=== PATIENT | female | born 1975 | race Caucasian/White ===

== ENCOUNTER 2018-10-20 12:00 | Inpatient (IN) | payer OTHER ==
[~2018-10-20] VITALS: Ht 170.2 cm; Wt 75.0 kg
[~2018-10-20 12:00] MED LIST: GLIM4TAB; LEVO150T87 PO; SIMV20TA2 PO
[2019-01-01 17:38] VITALS: Ht 170.2 cm; Wt 75.0 kg
[2019-01-03] VITALS (30 sets, daily range): BP systolic 115–157; BP diastolic 53–94; PULSE 72–97; RESP 10–27
[2019-01-03] MEDS ORDERED: LACTATED RINGER'S 1,000 ML IV* ONE (06:00)
[2019-01-03] MEDS ORDERED: THROMBIN (BOVINE) 5,000 UNIT VIAL TP ONE (06:55)
[2019-01-03] MEDS ORDERED: CEFAZOLIN 1 GM INJ ONE (06:55)
[2019-01-03] MEDS ORDERED: GELATIN SIZE 100 SPONGE ONE (06:55)
[2019-01-03] MEDS ORDERED: DESFLURANE 15 MIN ONE (07:00)
[2019-01-03] MEDS ORDERED: METF100010 PO (07:23)
[2019-01-03] MEDS ORDERED: ATOR40TA68 PO (07:23)
[2019-01-03] MEDS ORDERED: LEVO125T71 PO (07:23)
--- NOTE | 2019-01-03 07:23 | PREAC ---
Date/Time of Note Date/Time of Note DATE: 01/03/19 TIME: 07:22 Anesthesia Eval and Record Evaluation Time Pre-Procedure Interview DATE: 01/03/19 TIME: 07:22 Age 43 Sex female NPO: 8 hrs Preoperative diagnosis lumbar ddd Planned procedure L4-5 Lumbar interbody Fusion Past Medical History Past Medical History: Includes Cardio: HTN, Dyslipidemia Endo: Diabetes, Hypothyroid Recreational drugs: Marijuana Surgery & Anesthesia Issues No known issue Meds Anticoagulation: No Beta Traci within 24 hr: No Reason Beta Traci not given: Pt. not on B-Traci Reported Medications Simvastatin (Simvastatin) 20 Mg Tablet, 20 MG PO HS, TAB 06/30/14 Levothyroxine Sodium* (Synthroid*) 150 Mcg Tablet, 150 MCG PO AC BREAKFAST, TAB 06/30/14 Glimepiride* (Glimepiride*) 4 Mg Tablet 03/04/11 Current Medications Lactated Ringer's 1,000 ml @ 25 mls/hr Q24H ONCE IV* ; Start 01/03/19 at 06:00; Stop 01/04/19 at 05:59 Meds reviewed: Yes Allergies Coded Allergies: Erythromycin Base (Verified Allergy, Mild, 06/30/14) Penicillins (Verified Allergy, Mild, 06/30/14) codeine (Verified Allergy, Mild, 06/30/14) Uncoded Allergies: PLASTIC TAPES (Allergy, Mild, 03/05/11) Allergies Reviewed: Yes Labs/Studies Labs Reviewed: Reviewed by anesthesiologist Blood Bank Test 01/03/19 06:07 Blood Type O POSITIVE test: Negative Pre-procedure Exam Airway: Adequate mouth opening, Adequate thyromental dist Mallampati: Mallampati II Teeth: Normal Lung: Normal Heart: Normal ASA Physical Status ASA physical status: 3 Emergency: None Planned Anesthetic General/MAC: ETT Pre-operative Attestations Prior to commencing anesthesia and surgery, the patient was re-evaluated, there was verification of: *The patient's identity *The results of appropriate recent lab work and preoperative vital signs *The above evaluation not changing prior to induction *Anesthetic plan, risk benefits, alternative and complications discussed with patient/family; questions answered; patient/family understands, accepts and wishes to proceed. DENISE HERNANDEZ Jan 03, 2019 07:23
[2019-01-03] MEDS ORDERED: CHOL100062 PO (07:24)
--- NOTE | 2019-01-03 07:24 | HPN ---
Date/Time of Note Date/Time of Note DATE: 01/03/19 TIME: 07:24 Interval H&P Admission Note Pt. seen H&P reviewed: No system changes KIMBERLY ZAMAN MD Jan 03, 2019 07:24
[2019-01-03] MEDS ORDERED: ONDANSETRON 4 MG INJ IV PRN ×2 (07:30→15:30)
[2019-01-03] MEDS ORDERED: ALBUTEROL 0.083% (NEB) 2.5 MG/3 ML AMP HHN PRN (07:30)
[2019-01-03] MEDS ORDERED: METOCLOPRAMIDE 10 MG INJ IV PRN (07:30)
[2019-01-03] MEDS ORDERED: FENTAnyl 50 MCG/ML VIAL IV PRN ×6 (07:30→15:30)
[2019-01-03] MEDS ORDERED: MEPERIDINE 25 MG INJ IV PRN ×2 (07:30→15:30)
[2019-01-03] MEDS ORDERED: DIPHENHYDRAMINE 50 MG INJ IV PRN ×2 (07:30→15:30)
[2019-01-03] MEDS ORDERED: HYDROmorphONE 1 MG/5 ML IV SYRINGE IV PRN ×3 (07:30)
[2019-01-03] MEDS ORDERED: FENTAnyl 50 MCG/ML VIAL ONE ×6 (07:35→13:28)
--- NOTE | 2019-01-03 07:50 | PREOPHP ---
DATE OF ADMISSION: 01/03/2019 HISTORY OF PRESENT ILLNESS: The patient is a 43-year-old female with chronic low back pain and radia ting leg pain. The patient denies any bowel or bladder incontinence. The patient had an MRI and CT scan, which showed L4-L5 spondylolisthesis and stenosis. The patient states her leg pain is equal to her low back pain. PAST MEDICAL HISTORY: The patient's past medical history significant for diabetes. The patient has hypothyroidism, hyperlipidemia. REVIEW OF SYSTEMS: CONSTITUTIONAL: The patient denies any fevers or chills. HEMATOLOGIC: Denies any history of easy bruising or bleeding. PAST SURGICAL HISTORY: Denies. FAMILY HISTORY: Maternal grandmother has hypertension, heart disease. Maternal grandfather has hype rtension and heart disease. SOCIAL HISTORY: The patient is nonsmoker, but does smoke cannabis. ALLERGIES: 1. CODEINE. 2. PENICILLIN. 3. AZITHROMYCIN. PHYSICAL EXAMINATION: VITAL SIGNS: The patient's temperature 97.7, pulse 80, respirations 18, blood pressure 119/73. GENERAL: The patient is a mildly obese, middle-aged female in no acute distress. HEAD AND NECK: Normocephalic, atraumatic. Her neck is supple, nontender. CARDIAC: Regular rate and rhythm. LUNGS: Clear to auscultation. ABDOMEN: Nontender, nondistended, soft. EXTREMITIES: No clubbing, cyanosis, or edema. NEUROLOGIC: The patient is awake, alert, and oriented x3, fluent speech, follows commands readily ap propriately. She has normal attention and concentration and intact remote, and immediate and recent memory. Cranial nerves II through XII are intact. Motor exam is 5/5 bilaterally in upper and lower extremities. Deep tendon reflexes were 1+ with no clonus, Babinski, or Diana sign. PREOPERATIVE LABS: Reviewed. ASSESSMENT AND PLAN: A 43-year-old female with low back pain, severe L4-L5 degenerative disk disease , spondylolisthesis. I discussed the patient's signs, symptoms, physical examination, radiographic f indings with her again. I discussed the nature of the procedure, the risks, benefits and alternative s. The patient elected to proceed with surgery. The patient is to undergo an L4-L5 posterior spinal fusion with possible transforaminal lumbar interbody fusion. The patient has been cleared by her pr imary medical doctor and cna gna. Dictated By: KIMBERLY ZAMAN MD, LG/FERNANDO Conf#: [id number] DID#: [id number] CC: KIMBERLY ZAMAN MD;*EndCC*
[2019-01-03] MEDS ORDERED: POLYMYXIN/BACITRACIN 1L IRRIG ONE (08:20)
[2019-01-03] MEDS ORDERED: VANCOMYCIN 1 GM INJ ONE (08:20)
[2019-01-03] MEDS ORDERED: MIDAZOLAM 1 MG/ML 2 ML INJ ONE (08:29)
[2019-01-03] MEDS ORDERED: LIDOCAINE 1%/EPI (1:100,000) (MDV) 20 ML ONE (08:42)
[2019-01-03] MEDS ORDERED: SUCCINYLCHOLINE CHLORIDE 100 MG/5 ML SYG IV ONE (09:06)
[2019-01-03] MEDS ORDERED: LIDOCAINE 100 MG SYRINGE ONE (09:06)
[2019-01-03] MEDS ORDERED: PROPOFOL 20 ML ONE (09:06)
[2019-01-03] MEDS ORDERED: ROCURONIUM 50 MG INJ ONE (09:06)
[2019-01-03] MEDS ORDERED: GELATIN SIZE 100 SPONGE TOP ONE ×2 (11:56)
[2019-01-03] MEDS ORDERED: LABETALOL HCL 20MG INJ ONE ×2 (12:11→14:20)
[2019-01-03] MEDS ORDERED: SUGAMMADEX SODIUM 200 MG/2 ML VIAL IV ONE (14:11)
[2019-01-03] MEDS ORDERED: HYDROCODONE/APAP (5/325) TAB PO PRN ×2 (14:30)
[2019-01-03] MEDS ORDERED: ACETAMINOPHEN 325 MG TAB PO PRN (14:30)
[2019-01-03] MEDS ORDERED: NACL 0.9% 3 ML SYG IV SCH (14:30)
[2019-01-03] MEDS ORDERED: ZOLPIDEM 5 MG TAB PO PRN (14:30)
[2019-01-03] MEDS ORDERED: NALOXONE (0.4 MG/ML) INJ IV PRN (14:30)
[2019-01-03] MEDS ORDERED: DIPHENHYDRAMINE 50 MG CAP PO PRN (14:30)
[2019-01-03] MEDS ORDERED: ONDANSETRON 4 MG INJ ONE (14:37)
--- NOTE | 2019-01-03 14:44 | OPR ---
Date/Time of Note Date/Time of Note DATE: 01/03/19 TIME: 14:36 Operative Report Preoperative Diagnosis 1. chronic low back pain 2. lumbar radiculopathy 3.spondylolisthesis 4. lumbar degenerative disc disease. Postoperative Diagnosis 1. chronic low back pain 2. lumbar radiculopathy 3.spondylolisthesis 4. lumbar degenerative disc disease. Operation/Procedure Performed 1. lumbar laminectomy, medial facetectomy and foraminotomy L4-5. 2. L4-5 interbody and postero-lateral arthrodesis. 3. Placement of mechanical intervertebral body device. 4. Placement of posterior pedicle screw instrumentation. 5. Use of microscope for intraoperative microdissection. 6. Use of computerized frameless stereotactic navigation. Surgeon see signature line Combination Man EMILIA Wills Anesthesia Type: general Anesthesiologist: DENISE HERNANDEZ Estimated Blood Loss: 100 - 150 ml's Transfusion none Specimen none Grafts/Implants Pedicle screws, Choice spine. Spinewave expandable interbody cage Tubes/Drains subfascial CINDY Complications none Pt Condition Post Procedure: stable Disposition: PACU Procedure Description see dictation KIMBERLY ZAMAN MD Jan 03, 2019 14:44
[2019-01-03] MEDS: ONDANSETRON 4 MG INJ IV PRN ×2 (15:22→20:40)
[2019-01-03] MEDS: morphine 1 MG/ML 30 ML (PCA) IV SCH (16:09)
[2019-01-03] MEDS: SOD CHLORIDE 0.45% 1,000 ML IV SCH (16:47)
--- NOTE | 2019-01-03 19:36 | OPR ---
DATE OF OPERATION: 01/03/2019 PREOPERATIVE DIAGNOSES: 1. Chronic low back pain. 2. Lumbar radiculopathy. 3. Lumbar spondylolisthesis at L4 to L5. 4. Lumbar degenerative disk disease. POSTOPERATIVE DIAGNOSES: 1. Chronic low back pain. 2. Lumbar radiculopathy. 3. Lumbar spondylolisthesis at L4 to L5. 4. Lumbar degenerative disk disease. SURGEON: Kimberly Torres MD OPERATIONS CHIEF: Lacey Toro PA-C ANESTHESIOLOGIST: Harry Abel MD ANESTHESIA: General endotracheal. ESTIMATED BLOOD LOSS: 150 mL. SPECIMENS COLLECTED: None. GRAFTS: Included pedicle screws by ChoiceSpine expandable interbody cage. DRAINS PLACED: One subfascial CINDY. COMPLICATIONS: None. SPECIMENS COLLECTED: None. DISPOSITION: PACU. INDICATIONS: The patient is a 43-year-old female with chronic low back pain and lumbar radiculopathy. The patient had evidence of spondylolisthesis at L4 to L5 and severe degenerative disk disease. The risks, benefits and alternatives of surgical intervention were discussed with the patient who elected for surgery. PROCEDURE IN DETAILS: The patient was brought to the OR. She was sedated, intubated and anesthesia was successfully induced. Perioperative antibiotics were given. Sequential compression devices were placed in lower extremity. A Reyes catheter was placed. The patient was placed in a prone position on a Tu table. All pressure points were checked for appropriate padding. Electrophysiologic monitoring with EMGs and SSEPs were performed and baseline was established. Fluoroscopy was used to localize the initial incision. The patient was sterilely prepped and draped. After surgical time-out, the procedure commenced. A 10-blade knife was used to make an incision over the inferior L3, L4 and L5 spinous processes. Bovie electrocautery was used to dissect subperiosteally bilaterally on the spinous processes, lamina and facet joints to the transverse processes of L4 and L5. Self-retaining retractors were placed. At this point, the BrainLAB frame was placed in spinous process of L4 and the BrainLAB was registered. I proceeded to place the pedicle screws into the pedicles of L4 and L5 bilaterally using routine the following technique: The BrainLAB probe was used to localize the initial incision. A high speed drill was used to create a military pilot hole. Then, computer navigated drill was used to drill 30 mm into the pedicle. This hole was probed with a pedicle probe and then the BrainLAB probe placed in the hole to confirm the appropriate trajectory and location. Next, a 5.5 tap was used to cannulate the pedicle. Again, the hole was palpated and there was no evidence of breach and the BrainLAB probe was placed into the hole again to allow for trajectory and depth. Next 6.0 x 45 screw was screwed into the pedicle. All screws had excellent purchase. This was performed bilaterally at L4 and L5. The screws were tested, and there was no stimulation at 20 milliamps. X-rays were performed and there appeared to be good alignment of the screws. Next, the microscope was brought into the surgical field. Under microdissection,a laminectomy, bilateral medial facetectomy and foraminotomy was performed in inferior aspect of L4 and superior aspect of L5. This was performed with high speed drill and Kerrison rongeurs. This was distinctly performed to relieve lateral recess and foraminal stenosis from facet arthropathy and ligamentum flavum hypertrophy causing radicular symptoms. The inferior facet of L4 was then removed and the excess ligament was removed and exposure of the lateral disk space. The thecal sac was gently retracted medially. An 11-blade knife was used to incise the annulus. A diskectomy was performed with pituitary rongeurs and curettes. The disk space was severely collapsed and hence distraction was used in the pedicle screws with a ondina that was placed and clamped. This opened the disk space to allow for further diskectomy. Paddle stefano were placed to remove some disk space and used to remove some of the cartilaginous endplate. At this point, the bone was collected from the laminectomy as well as allograft was collected. An expandable cage 8 mm was tamponaded under fluoroscopic supervision into the disk space. It was then expanded to its full height from 8 to 10 mm. The bone was then tunneled into the graft into the disk space. Once the graft had been deployed, remaining graft was placed posterolaterally on the bone. Two rods were placed into the screw heads bilaterally and caps were placed. Final tightening was performed. Final fluoroscopic images were performed. The wound was copiously irrigated with bacitracin irrigation. A subfascial drain was placed in incision and tunneled throughout the skin. The incision was then closed with 1 interrupted Vicryl sutures in the fascia, 2-0 interrupted Vicryl sutures and subcutaneous layer in a running 4-0 Monocryl suture. Dermabond was placed. Incision was allowed to dry and sterile dressing was applied. The patient was taken off the table to recovery. Electrophysiologic monitoring remained stable during the case. Sponge, needle and cottonoid counts were reported correct at the end of the case. Dictated By: KIMBERLY TORRES MD, LG/FERNANDO Conf#: [id number] DID#: [id number] MTDD
[2019-01-03] MEDS: VANCOMYCIN 1 GM (PMX) 250 ML IVPB SCH (20:41)
[2019-01-03] MEDS: DIAZEPAM 5 MG TAB PO PRN (20:45)
[2019-01-03] MEDS: CEPASTAT LOZENGE MT PRN (20:46)
[2019-01-03] MEDS ORDERED: GLUCOSE GEL 15 GRAM TUBE BUCCAL PRN (22:00)
[2019-01-03] MEDS ORDERED: GLUCAGON 1 MG INJ IM PRN (22:00)
[2019-01-03] MEDS ORDERED: DEXTROSE 50% 50 ML SYRINGE IV PRN ×2 (22:00)
[2019-01-03] MEDS ORDERED: GLUCOSE GEL 15 GRAM TUBE PO PRN ×2 (22:00)
[2019-01-04 00:20] VITALS: BP 113/58; PULSE 94; RESP 18
[2019-01-04] MEDS: SOD CHLORIDE 0.45% 1,000 ML IV SCH ×4 (00:24→21:00)
[2019-01-04] MEDS: DIAZEPAM 5 MG TAB PO PRN ×4 (00:42→19:22)
[2019-01-04] MEDS: morphine 1 MG/ML 30 ML (PCA) IV SCH (01:09)
[2019-01-04] MEDS: ONDANSETRON 4 MG INJ IV PRN ×4 (01:56→22:48)
--- NOTE | 2019-01-04 07:30 | PAC ---
Date/Time of Note Date/Time of Note DATE: 01/04/19 TIME: 07:30 Post-Anesthesia Notes Post-Anesthesia Note Last documented vital signs Vital Signs Date Temp Pulse Resp B/P (MAP) Pulse Ox O2 O2 Flow FiO2 Time Delivery Rate 01/04/19 18 05:00 01/04/19 98.4 94 113/58 98 00:20 (76) 01/03/19 Room Air 17:00 Activity: WNL Respiratory function: WNL Cardiovascular function: WNL Mental status: Baseline Pain reasonably controlled: Yes Hydration appropriate: Yes Nausea/Vomiting absent: Yes DENISE HERNANDEZ Jan 04, 2019 07:30
[2019-01-04 07:56] VITALS: BP 116/58; PULSE 74; RESP 18
[2019-01-04] MEDS: VANCOMYCIN 1 GM (PMX) 250 ML IVPB SCH (08:24)
[2019-01-04] MEDS: DOCUSATE SODIUM 100 MG CAP PO SCH ×2 (08:25→21:07)
[2019-01-04] MEDS: INSULIN ASPART [NOVOLOG] 3 ML PEN SC SCH ×4 (08:36→21:00)
[2019-01-04] MEDS ORDERED: ACETAMINOPHEN 1000MG/100ML IV 100 ML IVPB PRN (12:30)
--- NOTE | 2019-01-04 12:57 | PN ---
Date/Time of Note Date/Time of Note DATE: 01/04/19 TIME: 12:50 Assessment/Plan Lines/Catheters IV Catheter Type (from Nrs): Peripheral IV Reyes in Place (from Nrs): Yes (INSERTED IN OR) Assessment/Plan Chief Complaint/Hosp Course POD # 1 s/p L3-4 laminectomy and fusion. The patient is neurologically stable. I removed her subfascial drain. Physical therapy. Toradol and IV Tylenol to minimize narcotics due to nausea, D/C UND[employer] INTERNS[employer]. SCD for DVT prophylaxis, will start low dose heparin. Bowel program. Ambulate. Subjective 24 Hr Interval Summary Patient is doing well but is anxious. She was complaining of a wet sensation under her incision but the incision is completely dry. She denies any LE radiating pain, numbness, tingling or focal weakness. She reports incisional low back pain. She reports some left hip swelling/tenderness. She reports some nausea. She denies fevers. She has ambulated and been seen by physical therapy. 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
[2019-01-04 15:06] VITALS: BP 123/58; PULSE 78; RESP 18
--- NOTE | 2019-01-04 15:57 | QN ---
Documentation Comment SEEN AND EXAMINED LUCAS GARCIA MD Jan 04, 2019 15:57
[2019-01-04] MEDS ORDERED: POTASSIUM CHLORIDE (SR) 20 MEQ TAB PO STA (16:14)
[2019-01-04] MEDS: KETOROLAC 30 MG INJ IV PRN (16:24)
[2019-01-04] MEDS: CEPASTAT LOZENGE MT PRN ×2 (17:15→21:33)
--- NOTE | 2019-01-04 17:49 | CONS ---
DATE OF ADMISSION: 01/03/2019 DATE OF CONSULTATION: 01/03/2019 REASON FOR ADMISSION: Status post L3 to L4 laminectomy and fusion. HISTORY OF PRESENTING ILLNESS: This is a 43-year-old female with a past medical history of diabetes, hyperlipidemia, hypothyroidism, who was having chronic back pain for many years. The patient was fo und to have lumbar radiculopathy, spondylolisthesis and lumbar degenerative disk disease. The patien t had a lumbar laminectomy, medial facetectomy and foraminotomy at L4 to L5 done by Dr. Zaman on . Currently, the patient said that she is in pain; however is off the CIVIL MANAGER pump as she was fe eling nauseous. She will be having physical therapy today. Vital signs currently blood pressure 123 /58, afebrile, heart rate 78, saturating 98% on room air. Labs showed potassium 3.4, BUN of 4, creat inine 0.34, glucose 221, calcium 8.7. PAST MEDICAL HISTORY: 1. Diabetes. 2. Hyperlipidemia. 3. Hypothyroidism. MEDICATIONS TAKING AT HOME: 1. Atorvastatin 40. 2. Levothyroxine 125. 3. Metformin 1000 b.i.d. 4. Cholecalciferol. ALLERGIES: 1. PENICILLIN. 2. CODEINE. 3. ERYTHROMYCIN BASE. PAST SURGICAL HISTORY: The patient had some uterine surgery. SOCIAL HISTORY: No history of smoking, alcohol or any drug use. Lives with her . REVIEW OF SYSTEMS: The patient complained of severe back pain. Denied any abdominal pain, nausea, v omiting, diarrhea, chest pain, shortness of breath, hematemesis, any melena or any bright red blood p er rectum. PHYSICAL EXAMINATION: VITAL SIGNS: Afebrile, heart rate 74, respirations 18, blood pressure 116/58, saturating 92% on room air. GENERAL: The patient is awake, alert, oriented, appears to be in mild distress secondary to pain. HEENT: Pupils are equal, round, reactive to light. HEART: Regular rate and rhythm. LUNGS: Clear to auscultate. ABDOMEN: Soft, nontender, nondistended. SKIN: Surgical site wet sensation under the incision. The incision is dry. LABORATORY DATA: Potassium of 3.4, BUN of 4, creatinine 0.38, glucose 265. ASSESSMENT AND PLAN: This is a 43-year-old female who presented with: 1. L3 to L4 laminectomy with postop pain. 2. Postop pain. 3. Diabetes. 4. Mild hypokalemia. 5. Hypercholesterolemia. 6. Hypothyroidism. PLAN: At this period of time, the patient is admitted to med/surg. The patient will be on carbohydr ate controlled diet. The patient will be resumed on home medicines. Currently, the patient is on To radol and Tylenol for pain. The patient is being seen by physical therapy. Rest of the treatment wi ll depend on the patient's hospitalization course. Dictated By: LUCAS JEFFERSON/FERNANDO Conf#: [id number] DID#: [id number] CC: KIMBERLY ZAMAN MD; PERLA WEBER MD;*[facility]*
[2019-01-04 20:30] VITALS: BP 130/67; PULSE 84; RESP 19
[2019-01-04 20:55] VITALS: BP 130/67; PULSE 84; RESP 19
[2019-01-04] MEDS ORDERED: ATORVASTATIN 40 MG TAB PO SCH (21:00)
[2019-01-04] MEDS: morphine 2 MG INJ IV PRN (21:07)
[2019-01-05] MEDS: DIAZEPAM 5 MG TAB PO PRN ×2 (00:14→05:43)
[2019-01-05] MEDS: KETOROLAC 30 MG INJ IV PRN ×2 (00:14→12:39)
[2019-01-05] MEDS: morphine 2 MG INJ IV PRN ×3 (05:01→16:16)
[2019-01-05] MEDS: LEVOTHYROXINE 125 MCG TAB PO SCH ×2 (06:11→21:23)
--- NOTE | 2019-01-05 06:41 | PN ---
Date/Time of Note Date/Time of Note DATE: 01/05/19 TIME: 06:37 Assessment/Plan Lines/Catheters IV Catheter Type (from Nrsg): Peripheral IV Reyes in Place (from Nrsg): Yes (INSERTED IN OR) Assessment/Plan Chief Complaint/Hosp Course POD # 2 s/p L3-4 laminectomy and fusion. The patient is neurologically stable. Cont. to mobilize. Physical therapy. Pain control. SCD for DVT prophylaxis, will start low dose heparin. Cont. Bowel program. Ambulate. Subjective 24 Hr Interval Summary Patient progressing slowly. Began her period today. Still mostly complaining of nausea, likely pain related not passing gas but no abdominal tenderness or distention. Denies weakness. Reports some left anterior thigh numbness but denies radicular pain. Reports incisional LBP. 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 GRAVELYKIMBERLY MD Jan 05, 2019 06:41
[2019-01-05 07:16] VITALS: BP 128/60; PULSE 80; RESP 18
[2019-01-05] MEDS: CEPASTAT LOZENGE MT PRN ×3 (07:24→19:57)
[2019-01-05] MEDS: INSULIN ASPART [NOVOLOG] 3 ML PEN SC SCH ×4 (08:41→21:00)
[2019-01-05] MEDS: DOCUSATE SODIUM 100 MG CAP PO SCH ×2 (09:05→20:53)
[2019-01-05] MEDS: ONDANSETRON 4 MG INJ IV PRN ×3 (10:24→21:23)
--- NOTE | 2019-01-05 12:44 | CONS ---
Assessment/Plan Assessment/Plan Hospital Course (Demo Recall) 1. L3 to L4 laminectomy. 2. Postop pain. 3. Diabetes mellitus type II. 4. Mild hypokalemia. 5. Hypercholesterolemia. 6. Hypothyroidism. 7. Anxiety Assessment/Plan (Daily) - med/surg. -antianx. meds - carbohydrate controlled diet. on Toradol and Tylenol for pain. - physical therapy. -bowel regime Consultation Date/Type/Reason Admit Date/Time Jan 03, 2019 at 05:29 Initial Consult Date Type of Consult primary Date/Time of Note DATE: 01/05/19 TIME: 12:44 24 HR Interval Summary Free Text/Dictation constipation Exam/Review of Systems Exam Vitals Vital Signs Date Temp Pulse Resp B/P (MAP) Pulse Ox O2 O2 Flow FiO2 Time Delivery Rate 01/05/19 98.2 80 18 128/60 94 Room Air 07:16 (82) Intake and Output 01/04/19 01/04/19 01/05/19 1515:00 23:00 07:00 IntakeIntake Total 1440 ml 1050 ml 520 ml OutputOutput Total 760 ml 1100 ml 750 ml BalanceBalance 680 ml -50 ml -230 ml Constitutional: alert, oriented Psych: anxiety Eyes: nl conjunctiva Neck: supple Respiratory: clear to auscultation Cardiovascular: regular rate and rhythm Gastrointestinal: soft Musculoskeletal: other (surg scar) Results Result Diagram: 01/04/19 0427 01/04/19 0427 Results 24hrs Laboratory Tests Test 01/04/19 13:28 01/04/19 17:59 01/04/19 21:11 01/05/19 08:28 Bedside Glucose 184 184 156 207 Medications Medication Current Medications Sodium Chloride 1,000 ml @ 50 mls/hr Q20H IV Last administered on 01/04/19at 21:00; Admin Dose 50 MLS/HR; Start 01/03/19 at 14:24 Zolpidem Tartrate (Ambien) 5 mg HS PRN PO .INSOMNIA Last administered on 01/03/19at 22:06; Admin Dose 5 MG; Start 01/03/19 at 14:30 Ondansetron HCl (Zofran Inj) 4 mg Q6H PRN IV NAUSEA/VOMITING Last administered on 01/05/19at 10:24; Admin Dose 4 MG; Start 01/03/19 at 14:30 Docusate Sodium (Colace) 100 mg BID PO Last administered on 01/05/19at 09:05; Admin Dose 100 MG; Start 01/04/19 at 09:00 Acetaminophen (Tylenol Tab) 650 mg Q4H PRN PO TEMP GREATER THAN 101F OR ALCARAZ; Start 01/03/19 at 14:30 Diazepam (Valium) 5 mg Q4H PRN PO .MUSCLE SPASM Last administered on 01/05/19at 05:43; Admin Dose 5 MG; Start 01/03/19 at 14:30 Phenol (Cepastat Lozenge) 1 lozenge PRN PRN MT .SORE THROAT Last administered on 01/05/19 12:39; Admin Dose 1 LOZENGE; Start 01/03/19 at 14:30 Diphenhydramine HCl (Benadryl) 50 mg Q6H PRN PO .PRURITUS Last administered on 01/03/19at 20:46; Admin Dose 50 MG; Start 01/03/19 at 14:30 IV Flush (NS 3 ml) 3 ml PER PROTOCOL IV ; Start 01/03/19 at 14:30 Naloxone HCl (Narcan) 0.2 mg Q2M PRN IV RR 8 BREATHS/MIN OR LESS; Start 01/03/19 at 14:30 Insulin Aspart (Novolog Insulin Pen) NOVOLOG *MILD* ALGORITHM WITH MEALS BEDTIME SC Last administered on 01/05/19 08:41; Admin Dose 2 UNIT; Start 01/04/19 at 07:50 Miscellaneous Information 1 ea NOTE XX ; Start 01/03/19 at 22:00 Glucose (Glutose) 15 gm Q15M PRN PO DECREASED GLUCOSE; Start 01/03/19 at 22:00 Glucose (Glutose) 22.5 gm Q15M PRN PO DECREASED GLUCOSE; Start 01/03/19 at 22:00 Dextrose (D50w Syringe) 25 ml Q15M PRN IV DECREASED GLUCOSE; Start 01/03/19 at 22:00 Dextrose (D50w Syringe) 50 ml Q15M PRN IV DECREASED GLUCOSE; Start 01/03/19 at 22:00 Glucagon (Glucagen) 1 mg Q15M PRN IM DECREASED GLUCOSE; Start 01/03/19 at 22:00 Glucose (Glutose) 15 gm Q15M PRN BUCCAL DECREASED GLUCOSE; Start 01/03/19 at 22:00 Ketorolac Tromethamine (Toradol) 30 mg Q6H PRN IV PAIN LEVEL 1-3 Last administered on 01/05/19at 12:39; Admin Dose 30 MG; Start 01/04/19 at 12:30; Stop 01/07/19 at 12:29 Morphine Sulfate (morphine) 2 mg Q2H PRN IV SEVERE PAIN LEVEL 7-10 Last administered on 01/05/19at 10:18; Admin Dose 2 MG; Start 01/04/19 at 12:30 Atorvastatin Calcium (Lipitor) 40 mg QHS PO Last administered on 01/04/19at 21:07; Admin Dose 40 MG; Start 01/04/19 at 21:00 Levothyroxine Sodium (Synthroid) 125 mcg BEFORE BREAKFAST PO ; Start 01/05/19 at 07:00 ALYSON SUH Jan 05, 2019 12:44
[2019-01-05 14:00] VITALS: BP 118/70; PULSE 84; RESP 18
[2019-01-05] MEDS ORDERED: morphine (ER) 15 MG TAB PO PRN (14:00)
[2019-01-05] MEDS ORDERED: morphine (ER) 15 MG TAB PO SCH ×2 (15:30→17:00)
[2019-01-05] MEDS: LUBIPROSTONE 8 MCG CAPSULE PO SCH ×2 (16:01→20:53)
[2019-01-05] MEDS ORDERED: HYDROCODONE/APAP (10/325) TAB PO PRN (18:00)
[2019-01-05 19:10] VITALS: BP 133/63; PULSE 91; RESP 18
[2019-01-05] MEDS ORDERED: MAGNESIUM HYDROXIDE 30ML CUP PO PRN (20:30)
[2019-01-05] MEDS: SOD CHLORIDE 0.45% 1,000 ML IV SCH (20:52)
[2019-01-05] MEDS: GABAPENTIN 100 MG CAP PO SCH (20:53)
[2019-01-05] MEDS: DIAZEPAM 5 MG TAB PO SCH (20:53)
[2019-01-05] MEDS: morphine (ER) 15 MG TAB PO SCH (20:54)
[2019-01-05] MEDS ORDERED: ATORVASTATIN 20 MG TAB PO SCH (21:17)
[2019-01-05] MEDS: CALCIUM CARBONATE 500 MG CHEW TAB PO SCH (21:54)
[2019-01-06] MEDS: morphine 2 MG INJ IV PRN ×2 (01:58→05:42)
[2019-01-06 02:00] VITALS: BP 126/64; PULSE 89; RESP 18
[2019-01-06] MEDS: ONDANSETRON 4 MG INJ IV PRN (04:02)
[2019-01-06] MEDS: CEPASTAT LOZENGE MT PRN (04:06)
[2019-01-06 07:05] VITALS: BP 111/55; PULSE 67; RESP 17
[2019-01-06] MEDS ORDERED: POTASSIUM CHLORIDE (SR) 20 MEQ TAB PO STA ×2 (07:48→15:46)
--- NOTE | 2019-01-06 08:35 | PN ---
Date/Time of Note Date/Time of Note DATE: 01/06/19 TIME: 08:23 Assessment/Plan Lines/Catheters IV Catheter Type (from Nrsg): Peripheral IV Reyes in Place (from Nrsg): Yes (INSERTED IN OR) Assessment/Plan Chief Complaint/Hosp Course POD # 3 s/p L3-4 laminectomy and fusion. The patient is neurologically stable. Cont. to mobilize. Physical therapy. Pain control- on oral meds. SCD for DVT prophylaxis, will start low dose heparin. Cont. Bowel program. Should be able to go home today after seen by hospitalist. Has home health eval. Discussed D/C precautions and instructions with patient. f/u in 2 weeks. Subjective 24 Hr Interval Summary Patient still with multiple complaints but improving. Denies radicular pain, fever, chills or weakness. She is urinating, ambulating and passing gas. 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
[2019-01-06] MEDS: DOCUSATE SODIUM 100 MG CAP PO SCH (08:39)
[2019-01-06] MEDS: LUBIPROSTONE 8 MCG CAPSULE PO SCH (08:39)
[2019-01-06] MEDS: DIAZEPAM 5 MG TAB PO SCH ×2 (08:40→12:10)
[2019-01-06] MEDS: GABAPENTIN 100 MG CAP PO SCH (08:40)
[2019-01-06] MEDS: LEVOTHYROXINE 125 MCG TAB PO SCH (08:41)
[2019-01-06] MEDS: morphine (ER) 15 MG TAB PO SCH (08:41)
[2019-01-06] MEDS: CALCIUM CARBONATE 500 MG CHEW TAB PO SCH ×2 (08:41→12:10)
[2019-01-06] MEDS: INSULIN ASPART [NOVOLOG] 3 ML PEN SC SCH ×2 (08:43→12:31)
[2019-01-06] MEDS ORDERED: CALCIUM CARBONATE 500 MG CHEW TAB PO SCH (08:50)
[2019-01-06 14:11] VITALS: BP 127/57; PULSE 101; RESP 16
--- NOTE | 2019-01-06 15:26 | DS ---
Date/Time of Note Date/Time of Note DATE: 01/06/19 TIME: 15:26 Discharge Summary Admission/Discharge Info Admit Date/Time Jan 03, 2019 at 05:29 Discharge Date/Time Discharge Diagnosis s/p L3 to L4 laminectomy. Patient Condition: Stable Consults Dr Torres, neurosurgeon Procedures s/p L3 to L4 laminectomy 01/03/2019 Hospital Course The patient is a 43-year-old female with chronic low back pain, hypothyroidism, hyperlipidemia, anxiety, insomnia and radiating leg pain. The patient denies any bowel or bladder incontinence. The patient had an MRI and CT scan, which showed L4-L5 spondylolisthesis and stenosis. The patient states her leg pain is equal to her low back pain. PAST MEDICAL HISTORY: The patient's past medical history significant for diabetes. The patient has hypothyroidism, hyperlipidemia. Admission ds: 1.s/p L3 to L4 laminectomy. 2. Postop pain. 3. Diabetes mellitus type II. 4. Mild hypokalemia. 5. Hypercholesterolemia. 6. Hypothyroidism. 7. Anxiety During hospitalization patient was in med/surg. unit. Pt was on pain and antianxiety meds. However, pt reported back pain and left leg numbness. Dr Torres see pt daily and we followed his instructions. We kept pt on carbohydrate controlled diet and had hypoglycemic control. Pt was on Toradol, MS contin and Tylenol for pain. Pt was started on physical therapy. Constipation was resolved with bowel regime. Until discharge pt had moderate back pain. Home Meds Reported Medications Cholecalciferol* (Vitamin D3*) 1,000 Unit Tablet, 1000 UNIT PO DAILY, TAB 01/03/19 Levothyroxine Sodium* (Levoxyl*) 125 Mcg Tablet, 125 MCG PO BEFORE BREAKFAST, #30 TAB 01/03/19 Atorvastatin* (Atorvastatin*) 40 Mg Tablet, 40 MG PO QHS, #30 TAB 01/03/19 Metformin Hcl* (Metformin Hcl*) 1,000 Mg Tablet, 1000 MG PO WITH BREAKFAST DINNE, #60 TAB 01/03/19 Discontinued Reported Medications Simvastatin (Simvastatin) 20 Mg Tablet, 20 MG PO HS, TAB 06/30/14 Levothyroxine Sodium* (Synthroid*) 150 Mcg Tablet, 150 MCG PO AC BREAKFAST, TAB 06/30/14 Glimepiride* (Glimepiride*) 4 Mg Tablet 03/04/11 Follow-up Plan PCP 1 week, dr Torres 2 weeks Primary Care Provider Not On Staff Doctor Time spent on discharge: < 30 minutes Pending Labs Laboratory Tests Test 01/05/19 17:48 01/05/19 20:58 01/06/19 05:10 01/06/19 08:15 Bedside 172 288 171 Glucose mg/dL (70-220) mg/dL (70-220) mg/dL (70-220) White Blood 9.1 Count 10^3/ul (4.8-1 0.8) Red Blood 3.42 Count 10^6/ul (4.20- 5.40) Hemoglobin 10.7 g/dl (12.0-16. 0) Hematocrit 32.0 % (37.0-47.0) Mean 93.6 Corpuscular fl (82.0-101.0 Volume ) Mean 31.3 Corpuscular pg (29.0-33.0) Hemoglobin Mean 33.4 Corpuscular g/dl (32.0-37. Hemoglobin Conc 0) ent Red Cell 12.4 Distribution % (11.5-14.5) Width Platelet Count 170 10^3/UL (140-4 15) Mean Platelet 11.5 Volume fl (7.4-10.4) Immature 0.400 Granulocytes % % (0.001-0.429 ) Neutrophils % 66.1 % (39.0-77.0) Lymphocytes % 17.2 % (15.0-51.0) Monocytes % 12.0 % (0.0-11.0) Eosinophils % 4.0 % (0.0-7.0) Basophils % 0.3 % (0.0-2.0) Nucleated Red 0.0 Blood Cells % /100WBC (0.0-0 .0) Immature 0.040 Granulocytes # 10^3/ul (0.0-0 .031) Neutrophils # 6.0 10^3/ul (1.6-7 .5) Lymphocytes # 1.6 10^3/ul (0.8-2 .9) Monocytes # 1.1 10^3/ul (0.3-0 .9) Eosinophils # 0.4 10^3/ul (0.0-0 .5) Basophils # 0.0 10^3/ul (0.0-0 .1) Nucleated Red 0.0 Blood Cells # 10^3/ul (0.0-0 .0) Sodium Level 136 mmol/L (135-14 4) Potassium 3.3 Level mmol/L (3.5-5. 1) Chloride Level 105 mmol/L (97-110 ) Carbon Dioxide 26 Level mmol/L (21-31) Anion Gap 5 (5-13) Blood Urea 4 mg/dl (7-20) Nitrogen Creatinine 0.39 mg/dl (0.44-1. 00) Est Glomerular > 60 Filtrat mL/min (>60) Rate mL/min Glucose Level 185 mg/dl (70-220) Calcium Level 8.8 mg/dl (8.4-10. 2) Test 01/06/19 12:10 Bedside 186 Glucose mg/dL (70-220) ALYSON SUH Jan 06, 2019 15:26
--- NOTE | 2019-01-06 15:28 | PDOCDIS ---
Discharge Instructions DIAGNOSIS Discharge Diagnosis s/p L3 to L4 laminectomy. CONDITION [id number] Patient Condition: [id number] Stable HOME CARE INSTRUCTIONS: [id number] Diet Instructions: [id number] Reduced Calorie ACTIVITY: [id number] Activity Restrictions: [id number] Slowly Increase Activity Rest between Activity Avoid heavy lifting Do not Drive Avoid Heavy Housework [id number] Bathing Restrictions: [id number] Tub Bath FOLLOW UP/APPOINTMENTS Follow-up Plan PCP [address] Torres 2 weeks REFERRALS Other Referrals and ALYSON WASSERMAN Jan 06, 2019 15:28
== END 2019-01-06 16:30 | disposition home health service (06) | DRG 455 ==
LOC: EDSTATUS 12:00 → REC 01-03 05:29 → MS1 01-03 16:30
PROVIDERS: ADMIT Neurological Surgery; ATTEND Neurological Surgery
PROC: 0SG0071 Fusion of Lumbar Vertebral Joint with Autologous Tissue Substitute, Posterior Approach, Posterior Column, Open Approach (ICD-10-PCS; 2019-01-03)
PROC: 0ST20ZZ Resection of Lumbar Vertebral Disc, Open Approach (ICD-10-PCS; 2019-01-03)
PROC: 4A11X4G Monitoring of Peripheral Nervous Electrical Activity, Intraoperative, External Approach (ICD-10-PCS; 2019-01-03)
PROC: 0SG00AJ Fusion of Lumbar Vertebral Joint with Interbody Fusion Device, Posterior Approach, Anterior Column, Open Approach (ICD-10-PCS; principal; 2019-01-03 07:30)
DX: M43.16 Spondylolisthesis, lumbar region (principal); M51.16 Intervertebral disc disorders with radiculopathy, lumbar region; E11.9 Type 2 diabetes mellitus without complications; E78.5 Hyperlipidemia, unspecified; E03.9 Hypothyroidism, unspecified; I10 Essential (primary) hypertension; E87.6 Hypokalemia; F41.9 Anxiety disorder, unspecified; K59.00 Constipation, unspecified
CPT/HCPCS: 72100; 72110; 72131; 80048; 82962; 85014; 85018; 85025; 86850; 86900; 86901; 87086; 97110; 97116; 97162; 97530; C1713; J0131; J0690; J1170; J1815; J1885; J2001; J2250; J2270; J2405; J3010; J3370; J7120; L0456

== ENCOUNTER 2019-02-05 13:56 | Emergency (ER) | payer OTHER ==
[~2019-02-05] VITALS: Ht 170.2 cm; Wt 76.7 kg
[~2019-02-05 13:56] MED LIST changes: +ATOR40TA68 PO; +CHOL100062 PO; -GLIM4TAB; +LEVO125T71 PO; -LEVO150T87 PO; +METF100010 PO; -SIMV20TA2 PO
[2019-02-05 14:00] VITALS: Ht 170.2 cm; Wt 76.7 kg
--- NOTE | 2019-02-05 14:15 | ERD ---
ER Documentation Chief Complaint Chief Complaint rt leg numbness since tuesday , back surgery on 01/03 HPI The patient is a 43-year-old female, presenting to the ER because of recurrent right lower extremity numbness, lower back pain radiating down to her right lower extremity, had similar symptoms previously, denies fecal/urinary incontinence, the pain is worse with movement. She denies fever, chills, neck pain, chest pain, dyspnea, abdominal pain, vomiting, dysuria, diarrhea. She does not smoke nor drink, denies any history of IV drug abuse Past medical history: Hypothyroidism, dyslipidemia, diabetes mellitus, chronic low back pain, anxiety Past surgical history: Back surgery in January 03, 2019, right ovarian cyst ROS All systems reviewed and are negative except as per history of present illness. Medications Home Meds Active Scripts Hydrocodone/Acetaminophen (Worth 5-325 Tablet) 1 Each Tablet, 1 TAB PO Q6H PRN for PAIN, #7 TAB Prov:APRIL ZAPIEN MD 02/05/19 Naproxen* (Naprosyn*) 500 Mg Tablet, 500 MG PO BID PRN for PAIN AND/OR INFLAMMATION, #20 TAB Prov:APRIL ZAPIEN MD 02/05/19 Reported Medications Loratadine* (Loratadine*) 10 Mg Tablet, 10 MG PO DAILY, #30 TAB 02/05/19 Zolpidem Tartrate* (Zolpidem Tartrate*) 10 Mg Tablet, 10 MG PO QHS PRN for INSOMNIA, #30 TAB 02/05/19 Metformin Hcl* (Metformin Hcl*) 500 Mg Tablet, 1000 MG PO WITH BREAKFAST DINNE, #60 TAB 02/05/19 Cholecalciferol* (Vitamin D3*) 1,000 Unit Tablet, 1000 UNIT PO DAILY, TAB 01/03/19 Levothyroxine Sodium* (Levoxyl*) 125 Mcg Tablet, 125 MCG PO BEFORE BREAKFAST, #30 TAB 01/03/19 Atorvastatin* (Atorvastatin*) 40 Mg Tablet, 40 MG PO QHS, #30 TAB 01/03/19 Discontinued Reported Medications Metformin Hcl* (Metformin Hcl*) 1,000 Mg Tablet, 1000 MG PO WITH BREAKFAST DINNE, #60 TAB 01/03/19 Allergies Allergies: Coded Allergies: Penicillins (Verified Allergy, Mild, 02/05/19) codeine (Verified Allergy, Mild, 02/05/19) erythromycin base (Verified Allergy, Mild, 02/05/19) Uncoded Allergies: PLASTIC TAPES (Allergy, Mild, 03/05/11) PMhx/Soc History of Surgery: Yes (OVARY) Anesthesia Reaction: No Hx Neurological Disorder: No Hx Respiratory Disorders: No Hx Cardiac Disorders: Yes (HICH CHOLESTEROL ) Hx Psychiatric Problems: No Hx Miscellaneous Medical Probl: Yes (chronic low back pain, radiating leg pain, DM, hypothyroid, hyperlipidemia) Hx Alcohol Use: No Hx Substance Use: Yes Hx Tobacco Use: No Physical Exam Vitals Vital Signs Date Temp Pulse Resp B/P (MAP) Pulse Ox O2 O2 Flow FiO2 Time Delivery Rate 02/05/19 81 18 118/58 100 Room Air 15:45 (78) 02/05/19 98.1 84 18 137/78 99 14:00 (97) Physical Exam Const: No acute distress Head: Atraumatic Eyes: Normal Conjunctiva ENT: Normal External Ears, Nose and Mouth. Neck: Full range of motion. No meningismus. Resp: Clear to auscultation bilaterally Cardio: Regular rate and rhythm, no murmurs Abd: Soft, non tender, non distended. Normal bowel sounds Skin: No petechiae or rashes Back: No midline or flank tenderness Ext: No cyanosis, or edema. Positive straight leg raising test on the right lower extremity, mild right calf tenderness Neur: Awake and alert Psych: Normal Mood and Affect Results 24 hrs Laboratory Tests Test 02/05/19 14:48 02/05/19 14:49 POC Beta HCG, Qualitative NEGATIVE Bedside Urine pH (LAB) 5.5 Bedside Urine Protein (LAB) Negative Bedside Urine Glucose (UA) 0.50% Bedside Urine Ketones (LAB) Negative Bedside Urine Blood 1+ Bedside Urine Nitrite (LAB) Negative Bedside Urine Leukocyte Esterase (L Negative Current Medications Medications Dose Sig/Mary Start Time Status Last (Trade) Ordered Route PRN Stop Time Admin Dose Reason Admin 1 tab ONCE ONCE 02/05/19 DC 02/05/19 Acetaminophen PO 16:00 16:03 / 02/05/19 16:01 Hydrocodone Bitart (Worth ()) Procedures/MDM [address] [address] Radiology Main Line: [phone] DIAGNOSTIC IMAGING REPORT Patient: JAQUELINE BENNETT : 1975 Age: 43 Sex: F [id number] DOS: 02/05/19 1440 Ordering MD: APRIL ZAPIEN MD Location: E/R Room/Bed: PROCEDURE: US Lower extremity Venous. CLINICAL INDICATION: Right leg edema, pain TECHNIQUE: Multiple sonographic images of the right lower extremity deep venous system was obtained utilizing grayscale, color-flow, compressive sonography and doppler imaging with augmentation. The images were reviewed on a PACS workstation. COMPARISON: None. FINDINGS: There is normal compressibility and flow within the right common femoral, femoral, posterior tibial, peroneal and popliteal veins. RPTAT: AA IMPRESSION: No sonographic evidence for deep venous thrombosis. .Orion Gates MD, MD Date Time Electronically viewed and signed by .Orion Gates MD, MD on 02/05/2019 15:30 .S/ CC: APRIL ZAPIEN MD [id number] MEDICAL MAKING DECISION: The patient is a 43-year-old female, presenting with chronic low back pain with sciatica, acute hematuria, was treated with Worth 10 mg p.o. for pain with good response, is stable for outpatient follow-up The differential diagnoses considered include but are not limited to diabetic neuropathy, DVT, back surgery sequela Departure Diagnosis: Primary Impression: Back pain with right-sided sciatica Additional Impression: Hematuria Condition: Stable Comments She was discharged with Naprosyn, Worth I discussed the findings with the patient. I advised the patient to follow-up with the primary physician in about 2-3 days, sooner if needed and return if any concern. Disclaimer: Inadvertent spelling and grammatical errors are likely due to EHR/dictation software use and do not reflect on the overall quality of patient care. Also, please note that the electronic time recorded on this note does not necessarily reflect the actual time of the patient encounter. APRIL ZAPIEN MD February 05, 2019 14:15
[2019-02-05] MEDS ORDERED: METF500T24 PO (15:06)
[2019-02-05] MEDS ORDERED: ZOLP10TA5 PO (15:07)
[2019-02-05] MEDS ORDERED: LORA10TA3 PO (15:07)
[2019-02-05 15:45] VITALS: BP 118/58; PULSE 81; RESP 18
[2019-02-05] MEDS ORDERED: NAPR-985 PO (15:57)
[2019-02-05] MEDS ORDERED: HYDR-4011 PO (15:57)
[2019-02-05] MEDS ORDERED: HYDROCODONE/APAP (5/325) TAB PO ONE (16:00)
== END 2019-02-05 16:38 | disposition home or self-care (01) ==
LOC: E/R 13:56
DX: M54.41 Lumbago with sciatica, right side (principal); R31.9 Hematuria, unspecified; E11.9 Type 2 diabetes mellitus without complications; Z79.84 Long term (current) use of oral hypoglycemic drugs
CPT/HCPCS: 81003; 81025; 93971; Z7502; Z7610